=== PATIENT | male | born 1955 | race Caucasian/White ===

== ENCOUNTER 2018-04-12 13:13 | Observation (INO) | payer BC ==
[2018-04-12] MEDS ORDERED: NS 1,000 ML IV ONE (13:23)
[2018-04-12] MEDS ORDERED: ASPIRIN 81 MG CHEWABLE TAB PO ONE (13:23)
[2018-04-12] MEDS ORDERED: DILTIAZEM 25 MG/5 ML VIAL IVP ONE ×2 (13:23→13:54)
--- NOTE | 2018-04-12 13:23 | CPEKG ---
Heart Rate: 154 RR Interval: 390 QRSD Interval: 84 QT Interval: 296 QTC Interval: 474 QRS [place]: 262 T Wave [place]: 38 EKG Severity - ABNORMAL ECG - EKG Impression: ATRIAL FIBRILLATION, V-RATE 91-179 EKG Impression: LEFT ANTERIOR FASCICULAR BLOCK EKG Impression: CONSIDER RIGHT VENTRICULAR HYPERTROPHY Electronically Signed By: Sunny Serrano 12-Apr-2018 13:26:12
--- NOTE | 2018-04-12 13:24 | EDPHY ---
H & P Stated Complaint: referred from [facility] urgent care, a-fib Time Seen by Provider: 04/12/18 13:20 HPI/ROS: CHIEF COMPLAINT: Cough HISTORY OF PRESENT ILLNESS: Patient is a 62-year-old man who presented to the urgent care for a mild dry cough. They discovered to be in atrial fibrillation with RVR. Patient does have a history of paroxysmal atrial fibrillation. He is not on any rate-controlling medications. He is on lisinopril and Lipitor only. He is also prediabetic. He denies any recent illness or fevers. He denies any chest pain shortness of breath. He denies palpitations. He is not on any blood thinners. REVIEW OF SYSTEMS: Constitutional: denies: chills, fever, recent illness, recent injury EENTM: denies: blurred vision, double vision, nose congestion Respiratory: See HPI denies: shortness of breath Cardiac: See HPI denies: chest pain, irregular heart rate, lightheadedness, palpitations Gastrointestinal/Abdominal: denies: abdominal pain, diarrhea, nausea, vomiting, blood streaked stools Genitourinary: denies: dysuria, frequency, hematuria, pain Musculoskeletal: denies: joint pain, muscle pain Skin: denies: lesions, rash, jaundice, bruising Neurological: denies: headache, numbness, paresthesia, tingling, dizziness, weakness Hematologic/Lymphatic: denies: blood clots, easy bleeding, easy bruising Immunologic/allergic: denies: HIV/AIDS, transplant EXAM: GENERAL: Well-appearing, well-nourished and in no acute distress. HEAD: Atraumatic, normocephalic. EYES: Pupils equal round and reactive to light, extraocular movements intact, sclera anicteric, conjunctiva are normal. ENT: TMs normal, nares patent, oropharynx clear without exudates. Moist mucous membranes. NECK: Normal range of motion, supple without lymphadenopathy or JVD. LUNGS: Breath sounds clear to auscultation bilaterally and equal. No wheezes rales or rhonchi. HEART: Tachycardic and irregular, rubs or gallops. ABDOMEN: Soft, nontender, normoactive bowel sounds. No guarding, no rebound. No masses appreciated. BACK: No CVA tenderness, no spinal tenderness, step-offs or deformities EXTREMITIES: Normal range of motion, no pitting or edema. No clubbing or cyanosis. NEUROLOGICAL: Cranial nerves II through XII grossly intact. Normal speech, normal gait. 5/5 strength, normal movement in all extremities, normal sensation PSYCH: Normal mood, normal affect. SKIN: Warm, dry, normal turgor, no visible rashes or lesions. Source: Patient, Old records Exam Limitations: No limitations - Medical/Surgical History Hx Asthma: No Hx Chronic Respiratory Disease: No Hx Diabetes: No Hx Cardiac Disease: No Hx Renal Disease: No Other PMH: Paroxysmal AFib,. HTN. High Cholesterol. Appy. bowel obstruction surgery - Family History Significant Family History: No pertinent family hx - Social History Smoking Status: Heavy smoker Alcohol Use: None Constitutional: Initial Vital Signs Temperature (C) 36.3 C 04/12/18 13:18 Heart Rate 146 H 04/12/18 13:18 Respiratory Rate 16 04/12/18 13:18 Blood Pressure 149/118 H 04/12/18 13:18 O2 Sat (%) 95 04/12/18 13:18 O2 Delivery Mode Room Air Allergies/Adverse Reactions: No Known Allergies Allergy (Verified 12/20/15 15:24) Home Medications: Medication Instructions Recorded Ascorbic Acid [Vitamin C 500 mg 500 mg PO DAILY 04/12/18 (*)] Aspirin [Aspirin 81mg (*)] 81 mg PO DAILY 04/12/18 Cyanocobalamin [Vitamin B12 (*)] 1,000 mcg PO DAILY 04/12/18 Lisinopril/Hctz 20/12.5MG 2 ea PO DAILY 04/12/18 [Zestoretic/Prinzide 20/12.5MG (*)] Simvastatin [Zocor] 40 mg PO HS 04/12/18 Vitamin E (Dl,Tocopheryl Acet) 1,000 unit PO DAILY 04/12/18 [Vitamin E] Medical Decision Making - Diagnostics EKG Interpretation: An EKG obtained and was read and documented in trace view. Please see trace view for full reading and report. Atrial fibrillation with RVR Imaging: Discussed imaging studies w/ outbound call center representative Radiologist ED Course/Re-evaluation: 2:10 p.m. After 2 doses of diltiazem the patient's heart rate is 80-120. Have paged Cardiology. Troponin is negative. We are awaiting the rest of the lab results. 2:20 p.m. I discussed the patient's care with Dr. Gross who will accept for admission. 2:40 p.m. I discussed the case with Chantal Minor who will consult. Differential Diagnosis: Partial list of the Differential diagnosis considered include but were not limited to; atrial fibrillation, atrial flutter, upper respiratory tract infection and although unlikely based on the history and physical exam, I also considered pneumonia, CHF. I discussed these differential diagnoses and the plan with the patient as well as the usual and expected course. The patient understands that the diagnosis is provisional and that in medicine we are not always correct and that further workup is often warranted. Usual and customary warnings were given. All of the patient's questions were answered. The patient was instructed to return to the emergency department should the symptoms at all worsen or return, otherwise to followup with the physician as we discussed. - Data Points Laboratory Results: Laboratory Results 04/12/18 13:29 04/12/18 13:29 Medications Given: Diltiazem HCl (Cardizem Er Q24hr) 300 mg PO DAILY [facility] Stop: 10/10/18 12:44 Last Admin: 04/13/18 13:53 Dose: 300 mg Enoxaparin Sodium (Lovenox) 70 mg SC BID ZION Stop: 10/09/18 21:59 Last Admin: 04/13/18 09:30 Dose: 70 mg Diltiazem/Dextrose (Diltiazem 125mg/125ml (Premix)) 125 mls @ 0 mls/hr IV CONT ZION; Titrate PRN Reason: Protocol Stop: 10/09/18 16:29 Last Admin: 04/13/18 07:43 Dose: 125 mls Nicotine (Nicoderm Cq) 21 mg TD DAILY ZION Stop: 10/09/18 16:14 Last Admin: 04/13/18 09:30 Dose: 21 mg Discontinued Medications Aspirin (Aspirin) 324 mg PO EDNOW ONE Stop: 04/12/18 13:24 Last Admin: 04/12/18 13:31 Dose: 324 mg Diltiazem HCl (Cardizem 25 Mg/5 Ml Vial) 10 mg IVP EDNOW ONE Stop: 04/12/18 13:24 Last Admin: 04/12/18 13:33 Dose: 10 mg Diltiazem HCl (Cardizem 25 Mg/5 Ml Vial) 10 mg IVP EDNOW ONE Stop: 04/12/18 13:55 Last Admin: 04/12/18 13:57 Dose: 10 mg Enoxaparin Sodium (Lovenox) 80 mg SC EDNOW ONE Stop: 04/12/18 13:34 Last Admin: 04/12/18 13:40 Dose: 80 mg Sodium Chloride (Ns) 1,000 mls @ 0 mls/hr IV EDNOW ONE; Wide Open PRN Reason: Protocol Stop: 04/12/18 13:24 Last Admin: 04/12/18 13:35 Dose: 1,000 mls Point of Care Test Results: Chemistry 04/12/18 13:39 POC Troponin I 0.01 ng/mL ng/mL (0.00-0.08) Departure - Departure Disposition: [facility] Inpatient Acute Clinical Impression: Atrial flutter with rapid ventricular response Condition: Good
[2018-04-12] MEDS ORDERED: ENOXAPARIN 80 MG/0.8 ML SYR SC ONE (13:33)
[2018-04-12] MEDS ORDERED: ONDANSETRON DISINTEGRATING 4 MG TAB PO PRN (14:33)
[2018-04-12] MEDS ORDERED: ACETAMINOPHEN 325 MG TAB PO PRN (14:33)
[2018-04-12] MEDS ORDERED: ONDANSETRON 4 MG/2 ML VIAL IVP PRN (14:33)
[2018-04-12 14:43] LABS: PLATELET COUNT 191 10^3/uL (150-400)
[2018-04-12 14:57] LABS: INR 0.88 (0.83-1.16); PROTIME(PATIENT) 12.2 SEC (12.0-15.0)
[2018-04-12] MEDS ORDERED: DILTIAZEM 125 MG in D5W 125 ML IV SCH (16:15)
[2018-04-12] MEDS: DILTIAZEM HCL/D5W 125 ML IV SCH (16:44)
[2018-04-12] MEDS: NICOTINE 21 MG/24 HR PATCH TD SCH (16:45)
--- NOTE | 2018-04-12 17:13 | GHP ---
[f rep st] HISTORY AND PHYSICAL DATE OF ADMISSION: 04/12/2018 CHIEF COMPLAINT: Left shoulder pain, AFib with RVR. HISTORY OF PRESENT ILLNESS: A 62-year-old male with history of paroxysmal atrial fibrillation, atrial flutter, hypertension, hyperlipidemia, who presented to Urgent Care with left shoulder pain. He noted it last night before dinner. It felt like he had a knot in his shoulder. It did not radiate and not associated with any nausea, vomiting, diaphoresis, or dizziness. It was relieved with Advil. He was at work. He was standing at work today at 11 o 'clock and developed the same sensation, thus went to the clinic. Has a chronic dry cough. Walks stairs at home without chest pain or shortness of breath. Drinks 3-4 alcoholic drinks a night, 2 cups of coffee daily. Does endorse trying a new vape pen and thinks he might have smoked more than intended as he is trying to quit tobacco. REVIEW OF SYSTEMS: I completed a 10-point review of systems, negative except in HPI. PAST MEDICAL HISTORY: Atrial flutter, colon polyps, hyperlipidemia, hypertension, paroxysmal atrial fibrillation, tobacco abuse. PAST SURGICAL HISTORY: Abdominal surgery, appendectomy, right inguinal hernia. FAMILY HISTORY: Colon cancer, coronary disease, hypertension, lung cancer, [place]. ALLERGIES: None. SOCIAL HISTORY: Smoked a pack a day of cigarettes for 48 years. Lives in [place] alone. Drinks 3-4 alcoholic drinks a night. Denies history of alcohol withdrawal. No illicits. HOME MEDICATIONS: Simvastatin, lisinopril, baby aspirin. PHYSICAL EXAMINATION: VITAL SIGNS: Temperature is 36.3, blood pressure 137/99 , heart rates 99 to 150s, respirations 18, 94% on room air. GENERAL: Well appearing, lying in bed, no acute distress. HEENT: PERRLA. Moist mucous membranes. CV: Irregularly irregular, tachy. Trace ankle edema. LUNGS: Diminished throughout. No wheezes or crackles. ABDOMEN: Soft, nontender, nondistended. Positive bowel sounds. : No Jaquez. MUSCULOSKELETAL: 5/5 upper and lower extremity strength. NEURO: 2 through 12 intact. PSYCH: Alert and oriented x3. LABORATORY DATA: WBC 8, hemoglobin 18, hematocrit 54, platelets 191. Coags within normal. Sodium 140, potassium 3.7, chloride 102, carbon dioxide 27, BUN 22, creatinine 0.8, glucose 92, calcium 10.1. LFTs within normal. Troponin less than 0.01. EKG is personally reviewed by me, AFib/flutter. ASSESSMENT AND PLAN: 1. Atrial fibrillation with RVR: Trigger may have been excess nicotine. He does drink several alcoholic and caffeinated beverages a day. Troponin is negative. Start a diltiazem drip. Lovenox. CHADS-VASc score is 1. He is currently on an aspirin. Can consider full anticoagulation. I explained both Coumadin and the novel agents, risks and benefits. 2. Hypertension. Lisinopril. 3. Hyperlipidemia. Statin. 4. Tobacco abuse. Nicotine patch. 5. Diet: Regular. 6. Deep venous thrombosis prophylaxis. He is on Lovenox. DISPOSITION: Patient warrants observation admission given acute atrial fibrillation, warranting IV diltiazem and telemetry. /[id number]/MODL MTDD
[2018-04-12] MEDS ORDERED: ENOXAPARIN 80 MG/0.8 ML SYR SC SCH (21:00)
[2018-04-12] MEDS: ENOXAPARIN 80 MG/0.8 ML SYR SC SCH (21:28)
[2018-04-13] MEDS: DILTIAZEM HCL/D5W 125 ML IV SCH (07:43)
[2018-04-13] MEDS: NICOTINE 21 MG/24 HR PATCH TD SCH (09:30)
[2018-04-13] MEDS: ENOXAPARIN 80 MG/0.8 ML SYR SC SCH ×2 (09:30→20:08)
--- NOTE | 2018-04-13 09:41 | ASMTCMCOM ---
CM Note CM Note Notes: Chart reviewed. Current every day smoker and alcohol use . Admitted via ED for afib with RVR. Lives alone. No current needs identified. CM to follow. Plan: Likely home independent when medically cleared for dc. Date Signed: 04/13/2018 09:41 AM Electronically Signed By:Laurie Moore RN
--- NOTE | 2018-04-13 10:58 | GCON ---
[f rep st] CONSULTATION DATE OF CONSULTATION: 04/13/2018 REFERRING PHYSICIAN: Frida Kat MD CHIEF COMPLAINT: We have been asked by Dr. Kat to evaluate Mr. Florentino with a chief complaint of atri al fibrillation. HISTORY OF PRESENT ILLNESS: Mr. Florentino is a 62-year-old gentleman with a history of paroxysmal atrial fibrillation who presents with atrial fibrillation and rapid ventricular response. The patient was i n his usual state of health until the day of admission, when he began to notice some left shoulder di scomfort while working in the [employer] office. He presented to the urgent care center for further evalua tion. In the urgent care center, he was noted to be in atrial fibrillation with rapid ventricular re sponse. The patient specifically denies symptoms of palpitations, syncope, and presyncope. He denie s symptoms of chest pain and shortness of breath. The patient's shoulder discomfort is described as a dull ache. The patient also reports a history of belching, which is somewhat unusual for him. The patient does have a previous history of paroxysmal atrial fibrillation. His last episode of atrial f ibrillation was diagnosed when he presented with low back pain. At that time, he was noted to be in atrial fibrillation with a rapid ventricular response, but spontaneously converted to a normal sinus rhythm without intervention. The patient did have a followup Holter monitor following this event luis antonio wing episodes of paroxysmal atrial fibrillation which were also asymptomatic. The patient denies a h istory of thyroid disease. Recent TSH is within normal limits. Patient typically consumes 2-3 alcoh olic beverages per day. He also continues to smoke. PAST MEDICAL HISTORY: 1. Atrial fibrillation. 2. Hypertension. 3. Hyperlipidemia. 4. Tobacco use/abuse. PAST SURGICAL HISTORY: 1. Status post abdominal surgery. 2. Status post appendectomy. 3. Status post inguinal herniorrhaphy. MEDICATIONS: Please see medicine reconciliation form. ALLERGIES: No known drug allergies. 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 He does smoke. He typically consumes 3-4 alc oholic beverages per night. FAMILY HISTORY: Notable for colon cancer, coronary artery disease, hypertension, lung cancer. REVIEW OF SYSTEMS: Ten-point review of systems is negative, except as noted in HPI. PHYSICAL EXAMINATION: GENERAL: The patient is resting comfortably in bed. He does not appear to be in acute distress. VITAL SIGNS: Temperature is afebrile. Pulse is 128, blood pressure 153/103, re spiratory rate is 17, SaO2 is 92% on room air. HEENT: Normocephalic, atraumatic. Extraocular muscl es intact. NECK: No JVD. No bruits. LUNGS: Clear to auscultation bilaterally. CARDIOVASCULAR: Tachycardia, irregular rhythm, S1-S2, grade 2/6 holosystolic murmur is noted at the left sternal bord er. ABDOMEN: Soft, nontender. Normoactive bowel sounds. No hepatosplenomegaly noted. Aorta could not be adequately palpated. SKIN: No evidence of rashes. EXTREMITIES: No clubbing, cyanosis, or edema. NEURO: The patient is awake, alert, and oriented x3. LABORATORY: White blood cell count is 8.72, hemoglobin is 18.6, hematocrit 54.4, platelet count 191. INR is 0.88. Sodium 140, potassium 3.7, chloride 102, CO2 27, BUN 22, creatinine 0.8. Troponin wi thin normal limits x2. TSH is 1.5. ASSESSMENT AND PLAN: Mr. Florentino is a 62-year-old gentleman with a history of hypertension, who present s with atrial fibrillation rapid ventricular response. This is at least his third episode of atrial fibrillation over the last 2 years. The patient is relatively asymptomatic with respect to his atria l fibrillation. Most of his presentations have been identified for other problems. Reviewed treatme nt options with the patient including a rate control and anticoagulation strategy as well as a rhythm control strategy. The patient wishes to pursue a rate control and anticoagulation strategy. His CH ADS2 Vasc score is technically 1 for hypertension, but he is increasing in age and will soon have a s econd point. Given patient is asymptomatic with respect to his atrial fibrillation, would favor full anticoagulation. Reviewed risks and benefits with the patient. At this time, we will plan on using diltiazem for rate control and initiating Coumadin therapy for anticoagulation. /[id number]/MODL
[2018-04-13] MEDS: DILTIAZEM CD 300 MG CAP PO SCH (13:53)
[2018-04-13] MEDS ORDERED: TEMAZEPAM 15 MG CAP PO PRN (15:22)
--- NOTE | 2018-04-13 15:29 | HOSPPROG ---
Hospitalist Progress Note Assessment/Plan: * Rapid afib -d/w Dr. Anand - suspect asymptomatic chronic afib -still on IV diltiazem - oral dose given - wean off IV if able -warfarin for stroke prevention - no bridge needed at discharge * HTN -holding lisinopril/HCTZ in favor of PO diltiazem * Etoh use - 3-4 drinks per night reported -watch for withdrawal * Tobacco dependence -nicotine patch Subjective: Denies symptoms. Wants to go home. Objective: Vital Signs Temp Pulse Resp BP Pulse Ox 36.6 C 98 17 127/95 H 94 04/13/18 11:40 04/13/18 11:40 04/13/18 11:40 04/13/18 11:40 04/13/18 11:40 04/12/18 04/13/18 04/14/18 05:59 05:59 05:59 Intake Total 2086 Balance 2086 PT 12.2 SEC (12.0-15.0) 04/12/18 13:29 INR 0.88 (0.83-1.16) 04/12/18 13:29 tele reviewed - still very rapid afib HR 125 at rest Laboratory Tests 04/12/18 04/12/18 16:37 19:45 Troponin I < 0.012 TSH 1.500 - Physical Exam Constitutional: no apparent distress, appears nourished, not in pain Cardiovascular: regular rate and rhythym, no murmur, rub, or gallop, irregularly irregular, tachycardia, No edema Respiratory: no respiratory distress, no rales or rhonchi, clear to auscultation Gastrointestinal: normoactive bowel sounds, soft, non-tender abdomen, no palpable masses Skin: no rashes or abrasions, no fluctuance, no induration Neurologic: AAOx3, sensation intact bilaterally Psychiatric: interacting appropriately, not anxious, not encephalopathic, thought process linear ICD10 Worksheet Patient Problems: Problems Problem Status Onset Atrial flutter with rapid ventricular response Acute
[2018-04-13] MEDS ORDERED: WARFARIN SODIUM 5 MG TAB PO SCH (16:00)
[2018-04-13] MEDS ORDERED: ATORVASTATIN CALCIUM 20 MG TAB PO SCH (21:00)
[2018-04-14 04:25] LABS: INR 0.97 (0.83-1.16); PROTIME(PATIENT) 13.1 SEC (12.0-15.0)
[2018-04-14 08:00] VITALS: BP 142/100
[2018-04-14] MEDS: DILTIAZEM CD 300 MG CAP PO SCH (08:22)
[2018-04-14] MEDS: ENOXAPARIN 80 MG/0.8 ML SYR SC SCH (09:10)
[2018-04-14] MEDS: NICOTINE 21 MG/24 HR PATCH TD SCH (09:12)
--- NOTE | 2018-04-14 09:44 | PDCARPN ---
Cardiology Progress Note Chief Complaint: a.fib Assessment/Plan: Assessment/Plan: Lopez is a 62 y/o M with a history of asymptomatic atrial fibrillation with RVR. He is being treated with rate control with Cardizem and anticoagulation with Coumadin. He has a CHADS VASc score of 1 but it will increase to 2 in a year. He has been given Coumadin teaching. He will need a PT/INR on Wednesday. ETOH cessation was discussed with him today. He is scheduled for a 24 hour holter monitor in one week and follow up with Dr. Reed in 1 months. 04/14/18 09:44 Subjective: He denies any CP, SOB, or palpitations. Reviewed/Discussed With: hospitalist Objective: Vital Signs (8 Hrs) Temp Pulse Resp BP Pulse Ox 04/14/18 07:57 36.8 C 106 H 20 142/100 H 90 L 04/14/18 04:00 36.6 C 98 18 131/106 H 94 Intake/Output (24 Hrs) 04/13/18 04/14/18 04/15/18 05:59 05:59 05:59 Intake Total 2086 1901 Balance 2086 1901 Intake: Oral (ml) 1000 1800 IV Infused (ml) 1087 102 Diltiazem HCl/D5w 125 ml 87 102 @ Titrate IV CONT ZION Rx# :[id number] Other: Weight 70.1 kg Number of Voids 1 Toilet 1 5 Result Diagrams: 04/12/18 13:29 04/12/18 13:29 Cardiac Labs: Cardiac Lab Results (72 Hrs) 04/12/18 19:45 Troponin I < 0.012 Telemetry: a.fib - Physical Exam Constitutional: WDWN Cardiovascular: irregularly irregular Respiratory: clear to auscultate bilat Skin: no edema Neurologic: AAOx3 ICD10 Worksheet Patient Problems: Problems Problem Status Onset Atrial flutter with rapid ventricular response Acute
--- NOTE | 2018-04-14 09:48 | ASMTDCNOTE ---
Case Management Discharge Discharge Order Complete? Answers: Yes Patient to Obtain Answers: Independently Medications Transportation Arranged Answers: Family/Friends Discharge Comments Notes: Patient discharged independently. 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 Date Signed: 04/14/2018 09:47 AM Electronically Signed By:Kimberlyn Cook RN
--- NOTE | 2018-04-14 15:35 | GDS ---
[f rep st] DISCHARGE SUMMARY DISCHARGE DIAGNOSES: 1. Rapid atrial fibrillation. 2. Hypertension. 3. Tobacco dependence. HISTORY OF PRESENT ILLNESS: The patient is a 62-year-old male who presented with shoulder pain, was found incidentally to be in rapid atrial fibrillation. Cardiology was consulted. He is asymptomatic from an atrial fibrillation standpoint and suspicion is that he is in this long-standing and chronic ally. He was started on IV diltiazem drip and transitioned to oral diltiazem with adequate rate cont rol. Warfarin to be initiated for stroke prevention. I will discontinue his lisinopril and have hyd rochlorothiazide in favor of oral diltiazem for blood pressure. He did not have any problems with al cohol or tobacco withdrawal during this hospitalization. Cardiology is arranging for Holter monitor upon discharge. DISCHARGE MEDICATIONS: Please see computer record for full detailed list. New medications: 1. Diltiazem CD 300 mg p.o. daily. 2. Warfarin 5 mg p.o. daily. Discontinued medications: 1. Lisinopril/hydrochlorothiazide 20/12.5 p.o. daily. 2. Aspirin 81 mg p.o. daily. ADDITIONAL DISCHARGE INSTRUCTIONS: 1. Holter monitor to be to be placed April 19 at 10 a.m. 2. Follow up with Dr. Reed May 19 at 3 p.m. 3. INR this upcoming Wednesday with Coumadin clinic. Greater than 30 minutes of time was spent arranging this discharge. Patient seen and examined by me on the day of discharge. /[id number]/MODL
== END 2018-04-14 11:37 | disposition home or self-care (01) ==
LOC: CED 13:13 → CEDHOLD 14:22 → F2W 15:50
PROVIDERS: ADMIT Internal Medicine; ATTEND Internal Medicine
DX: I48.0 Paroxysmal atrial fibrillation (principal); I10 Essential (primary) hypertension; F17.210 Nicotine dependence, cigarettes, uncomplicated; E86.9 Volume depletion, unspecified; E78.5 Hyperlipidemia, unspecified; R73.03 Prediabetes; M25.512 Pain in left shoulder; Z86.010 Personal history of colon polyps; Z72.89 Other problems related to lifestyle
CPT/HCPCS: 71046; 93005; 96361; 96372; 96374; 96375; 99285; G0378; 80076-PO; 84484-PO; J1650

== ENCOUNTER 2018-06-06 09:33 | Day surgery (SDC) | payer BC ==
[2018-06-06] MEDS ORDERED: MIDAZOLAM 2 MG/2 ML VIAL IVP ONE (09:35)
[2018-06-06] MEDS ORDERED: BENZOCAINE UNIT DOSE SPRAY HURRICAINE MM ONE (09:35)
[2018-06-06] MEDS ORDERED: fentaNYL 100 MCG/2 ML INJ IVP ONE (09:35)
[2018-06-06] MEDS ORDERED: ATROPINE SULFATE 1 MG/10 ML SYR IVP ONE (09:35)
[2018-06-06] MEDS ORDERED: NS 500 ML IV ONE (09:35)
[2018-06-06 10:19] LABS: INR 2.03 (0.83-1.16)
--- NOTE | 2018-06-06 10:38 | PDANEPAE ---
ANE History of Present Illness HERB + CV ANE Past Medical History - Cardiovascular History Hx Hypertension: Yes Hx Arrhythmias: Yes - Pulmonary History Hx Oxygen in Use at Home: No Hx Sleep Apnea: No - Endocrine History Hx Diabetes: No - Chronic Pain History Chronic Pain: No ANE Review of Systems Review of Systems: ANE Patient History - Allergies Allergies/Adverse Reactions: No Known Allergies Allergy (Verified 12/20/15 15:24) - Home Medications Home Medications: Ascorbic Acid [Vitamin C 500 mg (*)] 500 mg PO DAILY 04/12/18 [Last Taken 08:00] Cyanocobalamin [Vitamin B12 (*)] 1,000 mcg PO DAILY 04/12/18 [Last Taken 08:00] Vitamin E (Dl,Tocopheryl Acet) [Vitamin E] 1,000 unit PO DAILY 04/12/18 [Last Taken 06/05/18 08:00] Crestor 06/06/18 [Last Taken 06/05/18 20:00] - Smoking Hx Smoking Status: Heavy smoker ANE Labs/Vital Signs - Labs Result Diagrams: 06/06/18 09:55 - Vital Signs Height: 167.64 cm Weight: 72.575 kg ANE Physical Exam - Airway Neck exam: FROM Mallampati Score: Class 2 Mouth exam: normal dental/mouth exam - Pulmonary Pulmonary: clear to auscultation - Cardiovascular Cardiovascular: irregularly irregular - ASA Status ASA Status: III ANE Anesthesia Plan Anesthesia Plan: GA with mask
[2018-06-06] MEDS ORDERED: ONDANSETRON 4 MG/2 ML VIAL IVP PRN (10:39)
[2018-06-06] MEDS ORDERED: ACETAMINOPHEN 500 MG TAB PO PRN (10:39)
[2018-06-06] MEDS ORDERED: NALOXONE HCL 0.4 MG/ML INJ IVP PRN (10:39)
--- NOTE | 2018-06-06 10:40 | PDHPUP ---
History & Physical Update H&P update statement: This history and physical update is based on an assessment of the patient which was completed after admission or registration (within 24 hours), but prior to the surgery/procedure. H&P update: H&P reviewed & patient examined, no change in patient's condition since H&P completed
[2018-06-06] MEDS ORDERED: PROPOFOL 200 MG/20 ML VIAL ONE (10:47)
--- NOTE | 2018-06-06 11:26 | PDTEE1 ---
HERB Cardioversion Procedure Procedure: electrical cardioversion, transesophageal echo Indications: atrial fibrillation Consent: signed and in chart Anticoagulation: warfarin Procedural Details: After consents for anesthesia and HERB with possible cardioversion were signed, the patient was placed on the left lateral side, to facilitate ease of HERB probe placement. Sedation was induced, and HERB probe was placed without difficulty. 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 No change in rhythm (atrial fibrillation at 110 bpm) A second shock at 300J, sync without change to rhythm A third shock at 360J, sync without change to rhythm Repositioning of the pads on anterior and posterior with a fourth shock (360J, sync) did not change rhythm (atrial fibrillation at 110 bpm) Given a lack of response with variable shock and repositioning of the pads, we opted to end the procedure. Synchronized cardioversion attempt #1: 200J Synchronized cardioversion attempt #2: 300J Synchronized cardioversion attempt #3: 360J Synchronized cardioversion attempt #4: 360J Results: other (atrial fibrillation continued) Conclusions: successful HERB (but unable to terminate atrial arrhythmia) Patient Problems: Problems Problem Status Onset Atrial flutter with rapid ventricular response Acute
--- NOTE | 2018-06-06 11:50 | POSTANESTH ---
Post Anesthetic Evaluation Cardiovascular Status: Normal, Stable Respiratory Status: Normal, Stable Level of Consciousness/Mental Status: Can Participate in Eval, Alert and Oriented Pain Control: Adequate, Prn Tx Ordered Nausea/Vomiting Control: Adequate, Prn Tx Ordered Complications Possibly Related to Anesthesia: None Noted
--- NOTE | 2018-06-06 12:15 | ECHO ---
[email or web address] [address] [address] Main: [phone] Fax: Transesophageal Echocardiography Name: CONNIE DAVIS MR#: [id number] Study Date: 06/06/2018 Study Time: 10:58 AM Date of : 1955 Age: 63 year(s) Height: ( ) Weight: ( ) BSA: Gender: Male Examination: HERB Indication: Pre CV eval ELOISE Image Quality: Adequate Contrast: Requested by: Cricket Reed Heart Rate: Rhythm: BP: / Procedure Staff Traffic Worker: Aubrie Mejia RDCS Reading Physician: Cricket Reed MD Requesting Provider: HERB Exam Details Conclusions: Normal size left ventricle. Normal global systolic LV function. Normal size right ventricle. Left atrial enlargement. An agitated saline study was performed and was negative for intracardiac shunting. The left atrial appendage is unilobular. Good color flow doppler in the left atrial appendage. Right atrial enlargement. Mild mitral valve regurgitation is present. The aortic valve is tri-leaflet. There is no significant aortic valve regurgitation. No pericardial effusion. Lack of thrombus led to pursuit of cardioversion Measurements: Chambers Valvular Assessment AV/MV Valvular Assessment TV/PV Normal Normal Normal Name Value Range Name Value Range Name Value Range Additional Measurements: Findings: Left Ventricle: Patient: CONNIE DAVIS Study Date: 06/06/2018 Page 1 of 2 10:58 AM Normal size left ventricle. Normal global systolic LV function. Right Ventricle: Normal size right ventricle. Left Atrium: Left atrial enlargement. An agitated saline study was performed and was negative for intracardiac shunting. Left Atrial Appendage: The left atrial appendage is unilobular. Good color flow doppler in the left atrial appendage. Normal PW-Doppler flow pattern. No thrombus in left appendage. Right Atrium: Right atrial enlargement. Mitral Valve: The mitral valve is normal in appearance and function. Mild mitral valve regurgitation is present. No mitral stenosis is present. Aortic Valve: The aortic valve is tri-leaflet. There is no significant aortic valve regurgitation. No aortic valve stenosis is present. Pericardium: No pericardial effusion. l1n (No Signature Object) Patient: CONNIE DAVIS Study Date: 06/06/2018 Page 2 of 2 10:58 AM [id number]
--- NOTE | 2018-06-08 12:59 | CPEKG ---
Test Reason : OPEN Blood Pressure : / mmHG Vent. Rate : 124 BPM Atrial Rate : 219 BPM P-R Int : 159 ms QRS Dur : 086 ms QT Int : 314 ms P-R-T Axes : -27 259 056 degrees QTc Int : 451 ms Atrial fibrillation/flutter Ventricular premature complex Consider right ventricular hypertrophy Inferior infarct, old Atrial fibrillation is new in comparison to prior Confirmed by Cricket Reed ([id number]) on 06/08/2018 12:58:56 PM Referred By: Confirmed By:Cricket Reed
== END 2018-06-06 11:57 | disposition home or self-care (01) ==
LOC: FCATH 09:33
PROVIDERS: ATTEND Internal Medicine Cardiovascular Disease
PROC: 5A2204Z Restoration of Cardiac Rhythm, Single (ICD-10-PCS; principal; 2018-06-06)
PROC: B245ZZ4 Ultrasonography of Left Heart, Transesophageal (ICD-10-PCS; principal; 2018-06-06)
DX: I48.0 Paroxysmal atrial fibrillation (principal); I10 Essential (primary) hypertension; E78.5 Hyperlipidemia, unspecified; F17.210 Nicotine dependence, cigarettes, uncomplicated
CPT/HCPCS: J2704

== ENCOUNTER 2018-08-05 17:19 | Emergency (ER) | payer BC ==
--- NOTE | 2018-08-05 17:34 | EDPHY ---
H & P Time Seen by Provider: 08/05/18 17:21 HPI/ROS: CHIEF COMPLAINT: Right calf swelling HISTORY OF PRESENT ILLNESS: Patient is a 63-year-old man who comes to the emergency department complaining of pain and swelling in his right calf as well as some small petechial hemorrhages. He states that it was not like this this morning. Patient has a history of atrial fibrillation and is on Coumadin. He states that he takes it faithfully. Denies any recent trauma or injury. He is able to ambulate. He did twist his knee about 10 days ago and has had a mild pain over the medial aspect of his knee ever since. He has been taking ibuprofen to help control this pain. He states that this morning his leg look normal but after work today it is significantly swollen. No tingling or numbness or weakness. No change in his mild knee pain. Patient denies history of CHF, renal or liver disease. Severity: Severe Modifying factors: None REVIEW OF SYSTEMS: Constitutional: denies: chills, fever, recent illness, recent injury EENTM: denies: blurred vision, double vision, nose congestion Respiratory: denies: cough, shortness of breath Cardiac: denies: chest pain, irregular heart rate, lightheadedness, palpitations Gastrointestinal/Abdominal: denies: abdominal pain, diarrhea, nausea, vomiting, blood streaked stools Genitourinary: denies: dysuria, frequency, hematuria, pain Musculoskeletal: See HPI Skin: denies: lesions, rash, jaundice, bruising Neurological: denies: headache, numbness, paresthesia, tingling, dizziness, weakness Hematologic/Lymphatic: denies: blood clots, easy bleeding, easy bruising Immunologic/allergic: denies: HIV/AIDS, transplant 10 systems reviewed and negative except as noted EXAM: GENERAL: Well-appearing, well-nourished and in no acute distress. HEAD: Atraumatic, normocephalic. EYES: Pupils equal round and reactive to light, extraocular movements intact, sclera anicteric, conjunctiva are normal. ENT: TMs normal, nares patent, oropharynx clear without exudates. Moist mucous membranes. NECK: Normal range of motion, supple without lymphadenopathy or JVD. LUNGS: Breath sounds clear to auscultation bilaterally and equal. No wheezes rales or rhonchi. HEART: Regular rate and rhythm without murmurs, rubs or gallops. ABDOMEN: Soft, nontender, normoactive bowel sounds. No guarding, no rebound. No masses appreciated. BACK: No CVA tenderness, no spinal tenderness, step-offs or deformities EXTREMITIES: Right calf significantly swollen, compartments are soft. Mild petechial hemorrhages. No erythema or drainage. No open wounds. No cellulitis. Strong pulses. Normal sensation and movement. NEUROLOGICAL: Cranial nerves II through XII grossly intact. Normal speech, normal gait. 5/5 strength, normal movement in all extremities, normal sensation , normal reflexes PSYCH: Normal mood, normal affect. SKIN: Warm, dry, normal turgor, no visible rashes or lesions. Source: Patient Exam Limitations: No limitations - Medical/Surgical History Hx Asthma: No Hx Chronic Respiratory Disease: No Hx Diabetes: No Hx Cardiac Disease: No Hx Renal Disease: No Hx Cirrhosis: No Hx Alcoholism: No Hx HIV/AIDS: No Hx Splenectomy or Spleen Trauma: No Other PMH: Paroxysmal AFib,. HTN. High Cholesterol. Appy. bowel obstruction surgery - Family History Significant Family History: No pertinent family hx - Social History Smoking Status: Heavy smoker Alcohol Use: Sober Drug Use: None Constitutional: Initial Vital Signs Temperature (C) 36.9 C 08/05/18 17:29 Heart Rate 124 H 08/05/18 17:29 Respiratory Rate 18 08/05/18 17:29 Blood Pressure 133/107 H 08/05/18 17:29 O2 Sat (%) 94 08/05/18 17:29 O2 Delivery Mode Room Air Allergies/Adverse Reactions: No Known Allergies Allergy (Verified 12/20/15 15:24) Home Medications: Medication Instructions Recorded Ascorbic Acid [Vitamin C 500 mg 500 mg PO DAILY 04/12/18 (*)] Cyanocobalamin [Vitamin B12 (*)] 1,000 mcg PO DAILY 04/12/18 Vitamin E (Dl,Tocopheryl Acet) 1,000 unit PO DAILY 04/12/18 [Vitamin E] Diltiazem Cd [Cardizem ER 300 MG 300 mg PO DAILY #30 cap 04/14/18 (*)] Warfarin Sodium [Coumadin 5MG (*)] 5 mg PO DAILY AT 4PM #30 tab 04/14/18 Crestor 06/06/18 Medical Decision Making - Diagnostics EKG Interpretation: An EKG obtained and was read and documented in trace view. Please see trace view for full reading and report. Sinus rhythm, atrial fibrillation, similar to previous, no acute ischemic changes Imaging Results: Imaging Impressions Extremity Venous Study 08/05/18 17:28 Impression: 1. Negative for right lower extremity DVT. 2. Prominent, benign-appearing right inguinal lymph nodes are likely reactive. Findings and recommendations discussed with CLARISA HOWARD at 1807 hour, 08/05. Tibia/Fibula X-Ray 08/05/18 17:34 Impression: No acute osseous abnormality. Imaging: Discussed imaging studies w/ call out operator Radiologist ED Course/Re-evaluation: On exam and x-ray the patient appears to have diffuse contusion in his calf. Compartments are soft. He is able to ambulate. He does have some varicose veins there which she states her baseline. I do not think that he has cellulitis or infection. He is not febrile. He is not have white count. The skin is not warm. We discussed that this is a possibility however and I encouraged him to return the emergency department if he develops any of those symptoms or if his pain worsens. He is in agreement with this plan. He is able to ambulate without difficulty. He will follow up with his primary on Wednesday regarding this. His INR is appropriate. Differential Diagnosis: Partial list of the Differential diagnosis considered include but were not limited to; contusion, DVT, liver disease, renal disease and although unlikely based on the history and physical exam, I also considered CHF, ischemia, fracture, cellulitis, abscess, compartment syndrome. I discussed these differential diagnoses and the plan with the patient as well as the usual and expected course. The patient understands that the diagnosis is provisional and that in medicine we are not always correct and that further workup is often warranted. Usual and customary warnings were given. All of the patient's questions were answered. The patient was instructed to return to the emergency department should the symptoms at all worsen or return, otherwise to followup with the physician as we discussed. - Data Points Laboratory Results: Laboratory Results 08/05/18 17:37 08/05/18 17:37 08/05/18 08/05/18 08/05/18 17:37 17:37 17:37 WBC 9.15 10^3/uL 10^3/uL (3.80-9.50) RBC 5.87 10^6/uL 10^6/uL (4.40-6.38) Hgb 18.3 g/dL H g/dL (13.7-17.5) Hct 53.9 % H % (40.0-51.0) MCV 91.8 fL fL (81.5-99.8) MCH 31.2 pg pg (27.9-34.1) MCHC 34.0 g/dL g/dL (32.4-36.7) RDW 14.0 % % (11.5-15.2) Plt Count 209 10^3/uL 10^3/uL (150-400) MPV 10.6 fL fL (8.7-11.7) Neut % (Auto) 58.9 % % (39.3-74.2) Lymph % (Auto) 23.2 % % (15.0-45.0) Clinch % (Auto) 7.9 % % (4.5-13.0) Eos % (Auto) 8.7 % H % (0.6-7.6) Baso % (Auto) 0.9 % % (0.3-1.7) Nucleat RBC Rel Count 0.0 % % (0.0-0.2) Absolute Neuts (auto) 5.39 10^3/uL 10^3/uL (1.70-6.50) Absolute Lymphs (auto) 2.12 10^3/uL 10^3/uL (1.00-3.00) Absolute Monos (auto) 0.72 10^3/uL 10^3/uL (0.30-0.80) Absolute Eos (auto) 0.80 10^3/uL H 10^3/uL (0.03-0.40) Absolute Basos (auto) 0.08 10^3/uL 10^3/uL (0.02-0.10) Absolute Nucleated RBC 0.00 10^3/uL 10^3/uL (0-0.01) Immature Gran % 0.4 % % (0.0-1.1) Immature Gran # 0.04 10^3/uL 10^3/uL (0.00-0.10) RBC/WBC/PLT Morphology TNP Platelet Estimate TNP PT 26.9 SEC H SEC (12.0-15.0) INR 2.49 H (0.83-1.16) APTT 37.1 SEC SEC (23.0-38.0) Sodium 138 mEq/L mEq/L (135-145) Potassium 3.9 mEq/L mEq/L (3.3-5.0) Chloride 107 mEq/L mEq/L (97-110) Carbon Dioxide 24 mEq/l mEq/l (22-31) Anion Gap 7 mEq/L mEq/L (6-14) BUN 16 mg/dL mg/dL (7-23) Creatinine 0.8 mg/dL mg/dL (0.7-1.3) Estimated GFR > 60 Glucose 87 mg/dL mg/dL (70-100) Calcium 9.3 mg/dL mg/dL (8.5-10.4) Total Bilirubin 0.5 mg/dL mg/dL (0.1-1.4) Conjugated Bilirubin 0.1 mg/dL mg/dL (0.0-0.5) Unconjugated Bilirubin 0.4 mg/dL mg/dL (0.0-1.1) AST 27 IU/L IU/L (17-59) ALT 26 IU/L IU/L (21-72) Alkaline Phosphatase 37 IU/L L IU/L (38-126) Total Protein 6.2 g/dL L g/dL (6.3-8.2) Albumin 3.7 g/dL g/dL (3.5-5.0) Lipase 150 IU/L IU/L (23-300) Departure - Departure Disposition: Home, Routine, Self-Care Clinical Impression: Contusion Qualifiers: Encounter type: initial encounter Contusion area: lower leg Laterality: right Qualified Code(s): S80.11XA - Contusion of right lower leg, initial encounter Condition: Fair Instructions: Contusion in Adults (ED) Referrals: Chris San MD [Primary Care Provider] - 2-3 days, if not improved
--- NOTE | 2018-08-05 17:38 | CPEKG ---
Test Reason : OPEN Blood Pressure : / mmHG Vent. Rate : 104 BPM Atrial Rate : 142 BPM P-R Int : 062 ms QRS Dur : 098 ms QT Int : 403 ms P-R-T Axes : 000 -87 053 degrees QTc Int : 531 ms Atrial fibrillation Ventricular premature complex Left anterior fascicular block Confirmed by Sunny Serrano ([id number]) on 08/05/2018 5:37:39 PM Referred By: Confirmed By:Sunny Serrano
[2018-08-05 19:03] LABS: PLATELET COUNT 209 10^3/uL (150-400)
[2018-08-05 19:06] LABS: INR 2.49 (0.83-1.16)
[2018-08-05 19:21] VITALS: BP 134/102
[2018-08-05 19:49] LABS: PROTIME(PATIENT) 26.9 SEC (12.0-15.0)
== END 2018-08-05 19:21 | disposition home or self-care (01) ==
LOC: CED 17:19
DX: S80.11XA Contusion of right lower leg, initial encounter (principal); I48.91 Unspecified atrial fibrillation; X58.XXXA Exposure to other specified factors, initial encounter; I10 Essential (primary) hypertension; E78.5 Hyperlipidemia, unspecified; F17.200 Nicotine dependence, unspecified, uncomplicated; Z79.1 Long term (current) use of non-steroidal anti-inflammatories (NSAID)
CPT/HCPCS: 73590-PO; 80076-PO; 93971-PO